=== PATIENT | male | born 1985 | race Caucasian/White ===

== ENCOUNTER → 2019-05-09 12:19 | Outpatient (CLI) | payer OTHER, SELFPAY ==
[2019-05-09 13:42] LABS: Pathologist Comment May follow
[2019-05-09 14:14] LABS: Synovial Fld Mononuclear WBC % 93.1 %; Synovial Fld Polynuclear WBC # 0.026 10^3/uL; Synovial Fld Polynuclear WBC % 6.9 %
[2019-05-09 14:20] LABS: AUTO B FLUID DILUENT BKGD CT WBC <0.1 RBC <0.01 (W<.1,R<.01); Color / Synovial Fluid Yellow (Pale Yellow); Source- Body Fluid SYNOVIAL; Viscosity / Synovial Fluid Sl. Viscous (HIGH)
[2019-05-09 14:21] LABS: Appearance /Synovial Fluid Clear (CLEAR)
[2019-05-09 14:29] LABS: RBC /Synovial Fluid 190 /mm3 (0)
[2019-05-09 15:22] LABS: Lymph 76 %; Monocyte /Synovial Fluid 3 %; Neutrophil 7 % (0-25); Other Cell /Synovial Fluid 14 %
[2019-05-09 15:24] LABS: Body Fluid QC Type(s) BF1,BF2,BF3
[2019-05-09 15:37] LABS: Source / Synovial Fluid R KNEE
[2019-05-10 14:05] LABS: Pathologist Review Reviewed
== END ==
PROVIDERS: Referring Provider Physician Assistant; Visit Provider Physician Assistant
DX: M25.461 Effusion, right knee (principal)
CPT/HCPCS: 87070; 87075; 87205; 89050; 89051; 89060